=== PATIENT | female | born 1995 | race African-American/Black ===

== ENCOUNTER 2017-06-30 11:08 | Emergency (ER) | payer BC ==
[2017-06-30 11:16] VITALS: BP 115/68; PULSE 78; TEMP 98.5; BMI 24.7
--- NOTE | 2017-06-30 11:58 | PDOC ---
History of Present Illness - General Chief Complaint: Headache Stated Complaint: HEAD PAIN Time Seen by Provider: 06/30/17 11:45 History Source: Patient Exam Limitations: No Limitations - History of Present Illness Initial Comments: 06/30/17 11:58 21 yr female with c/o scalp laceration after accidentaly hitting her head on the counter after sneezing. No LOC no nausea or vomiting. Severity: Yes: mild Past History - Past Medical History Allergies/Adverse Reactions: Allergies Allergy/AdvReac Type Severity Reaction Status Date / Time No Known Allergies Allergy Verified 06/30/17 11:15 - Suicide/Smoking/Psychosocial Hx Smoking History: Never smoked Have you smoked in the past 12 months: No Information on smoking cessation initiated: No Hx Alcohol Use: No Drug/Substance Use Hx: No Review of Systems - Review of Systems Able to Perform ROS?: Yes Is the patient limited Greek proficient: No Constitutional: No: Symptoms Reported HEENTM: No: Symptoms Reported Respiratory: No: Symptoms reported Cardiac (ROS): No: Symptoms Reported, Irregular Heart Rate ABD/GI: No: Symptoms Reported : No: Symptoms Reported Musculoskeletal: No: Symptoms Reported Integumentary: Yes: Symptoms Reported Neurological: No: Symptoms reported *Physical Exam - Vital Signs Last Vital Signs Temp Pulse Resp BP Pulse Ox 98.5 F 78 16 115/68 100 06/30/17 11:14 06/30/17 11:14 06/30/17 11:14 06/30/17 11:14 06/30/17 11:14 - Physical Exam General Appearance: Yes: Nourished, Appropriately Dressed HEENT: positive: EOMI, SANDY Neck: positive: Supple. negative: Tender Respiratory/Chest: positive: Lungs Clear, Normal Breath Sounds Cardiovascular: positive: Regular Rhythm, Regular Rate Integumentary: positive: Normal Color, Other (right parietal area with superficial 1cm lac, bleeding controlled) Neurologic: positive: Fully Oriented, Alert, Normal Mood/Affect, Normal Response , Motor Strength 5/5 Procedures - Additional Procedures Progress: 06/30/17 12:13 wound cleaned with saline and betadine bacitracin placed Medical Decision Making - Medical Decision Making 06/30/17 12:03 cc: scalp laceration tetanus is UTD pt without headache no nausea or vomiting , texting on her cell phone wound cleaned with saline/betadine bacitracin placed *DC/Admit/Observation/Transfer Diagnosis at time of Disposition: Laceration of scalp Qualifiers: Encounter type: initial encounter Qualified Code(s): S01.01XA - Laceration without foreign body of scalp, initial encounter - Discharge Dispostion Disposition: HOME Condition at time of disposition: Good - Referrals - Patient Instructions Printed Discharge Instructions: DI for Closed Head Injury Additional Instructions: wash hair as per routine take tylenol 650mg every 4-6hrs for pain drink pleanty of water today avoid any alcohol for the next 24hours return to ER for any worsening symptoms - Post Discharge Activity
== END 2017-06-30 12:03 | disposition home or self-care (01) ==
LOC: JERFT 11:08
DX: S01.01XA Laceration without foreign body of scalp, initial encounter (principal); W22.8XXA Striking against or struck by other objects, initial encounter; Y93.89 Activity, other specified; Y92.038 Other place in apartment as the place of occurrence of the external cause; Y99.8 Other external cause status
CPT/HCPCS: 99281-25